=== PATIENT | male | born 1970 | race Two or more races ===

== ENCOUNTER → 2018-10-13 | Outpatient (CLI) | payer OTHER | END | disposition home or self-care (01) | LOC: SONOGRAMA 08:40 | DX: E04.1 Nontoxic single thyroid nodule (principal) ==

== ENCOUNTER 2023-02-21 13:15 | Emergency (ER) | payer OTHER ==
[~2023-02-21] VITALS: Ht 172.7 cm; Wt 71.7 kg
[2023-02-21] MEDS ORDERED: SYNTHROID50 MCG PO (13:56)
[2023-02-21] MEDS ORDERED: COZAAR25 MG PO (17:24)
== END 2023-02-21 17:28 | disposition home or self-care (01) ==
LOC: ER 13:15
PROVIDERS: General Practice
DX: R07.9 Chest pain, unspecified (principal); I10 Essential (primary) hypertension